=== PATIENT | male | born 1975 | race Caucasian/White ===

== ENCOUNTER → 2021-03-16 | Outpatient (CLI) | payer OTHER ==
[~2021-03-16] MED LIST: ARMIDEX PO; IBUPROFEN800 MG PO; NORCO 7.5-3251 EACH PO; STOOL SOFTENER250 MG PO; TESTOSTERONE IM; ZOFRAN4 MG PO
== END ==
LOC: RAD 15:23
DX: M25.561 Pain in right knee (principal); M17.0 Bilateral primary osteoarthritis of knee
CPT/HCPCS: 73562

== ENCOUNTER 2021-07-03 15:17 | Emergency (ER) | payer OTHER | END 2021-07-03 20:38 | disposition home or self-care (01) | LOC: ER1 15:17 | PROVIDERS: Surgery | PROC: 0DC38ZZ Extirpation of Matter from Lower Esophagus, Via Natural or Artificial Opening Endoscopic (ICD-10-PCS; principal; 2021-07-03 17:10) | DX: T18.128A Food in esophagus causing other injury, initial encounter (principal); Z20.822 Contact with and (suspected) exposure to COVID-19; Z98.890 Other specified postprocedural states; X58.XXXA Exposure to other specified factors, initial encounter; Y93.89 Activity, other specified | CPT/HCPCS: 96372; 99283; J1100; J1610; J2001; J2250; J2405; J2704; J2765; J3010; J7120; U0002 ==